=== PATIENT | male | born 1980 | race Two or more races ===

== ENCOUNTER 2016-11-29 16:11 | Emergency (ER) | payer MEDICAID, OTHER, SELFPAY ==
[~2016-11-29] VITALS: Ht 180.3 cm; Wt 119.0 kg
[2016-11-29] MEDS ORDERED: ONDANSETRON 2MG/ML, 2ML IVPush ONE (16:30)
[2016-11-29] MEDS ORDERED: PROCHLORPERAZINE 5 MG/ML, 2ML IVPush ONE (16:30)
[2016-11-29] MEDS ORDERED: SODIUM CHLORIDE FLUSH 10ML SYR IVF ONE (16:30)
[2016-11-29] MEDS ORDERED: SODIUM CHLORIDE 0.9% 1,000ML IVBOLUS ONE (16:30)
[2016-11-29] MEDS ORDERED: KETOROLAC 30 MG/1 ML IVPush ONE (16:30)
[2016-11-29] MEDS ORDERED: DIPHENHYDRAMINE 50 MG/ML, 1ML IVPush ONE (16:30)
[2016-11-29] MEDS ORDERED: KETOROLAC 30 MG/1 ML ONE (17:42)
[2016-11-29] MEDS ORDERED: DIPHENHYDRAMINE 50 MG/ML, 1ML ONE (17:42)
[2016-11-29] MEDS ORDERED: ONDANSETRON 2MG/ML, 2ML ONE (17:43)
[2016-11-29] MEDS ORDERED: ALLO300T PO (18:21)
[2016-11-29] MEDS ORDERED: OMEP-110 PO (18:21)
[2016-11-29] MEDS ORDERED: ATOR40TA78 PO (18:21)
[2016-11-29 19:30] VITALS: BP 120/81
== END 2016-11-29 19:34 | disposition home or self-care (01) ==
LOC: ED 19:28
DX: G44.219 Episodic tension-type headache, not intractable (principal); E78.00 Pure hypercholesterolemia, unspecified; K21.9 Gastro-esophageal reflux disease without esophagitis
CPT/HCPCS: 70450; 96361; 96374; 96375; 99284; J1200; J1885; J2405; J7030